=== PATIENT | female | born 1970 | race Caucasian/White ===

== ENCOUNTER 2020-04-10 08:29 | Outpatient (REF) | payer OTHER, SELFPAY | END 2020-04-10 08:30 | disposition home or self-care (01) | LOC: HO.LAB 08:29 | PROVIDERS: PCP Internal Medicine; Visit Provider Internal Medicine | DX: Z20.828 Contact with and (suspected) exposure to other viral communicable diseases (principal) | CPT/HCPCS: 87635 ==

== ENCOUNTER 2020-05-02 11:43 | Outpatient (REF) | payer OTHER, SELFPAY ==
[2020-05-02 12:02] LABS: COVID-19 Test Negative (Negative)
== END 2020-05-02 11:44 | disposition home or self-care (01) ==
LOC: HO.LAB 11:43
PROVIDERS: PCP Internal Medicine; Visit Provider Internal Medicine
DX: Z20.828 Contact with and (suspected) exposure to other viral communicable diseases (principal)
CPT/HCPCS: 87635

== ENCOUNTER 2020-06-09 06:03 | Outpatient (REF) | payer OTHER, SELFPAY ==
[2020-06-09 06:27] LABS: COVID-19 Test Negative (Negative)
== END 2020-06-09 06:04 | disposition home or self-care (01) ==
LOC: HO.EMPCOV 06:03
PROVIDERS: Visit Provider Internal Medicine
DX: Z20.828 Contact with and (suspected) exposure to other viral communicable diseases (principal)
CPT/HCPCS: 87635; C9803

== ENCOUNTER → 2020-06-24 14:44 | Outpatient (BNVA) | payer OTHER, SELFPAY | PROVIDERS: PCP Internal Medicine; Referring Provider Internal Medicine; Visit Provider Surgery | DX: Z76.89 Persons encountering health services in other specified circumstances (principal) ==

== ENCOUNTER → 2020-07-15 11:00 | Outpatient (BNVA) | payer OTHER, SELFPAY | PROVIDERS: PCP Internal Medicine; Visit Provider Advanced Practice Midwife | DX: Z76.89 Persons encountering health services in other specified circumstances (principal) ==

== ENCOUNTER 2020-07-21 10:43 | Day surgery (SDC) | payer OTHER, SELFPAY ==
[2020-07-15 09:59] VITALS: BMI 30.7
--- NOTE | 2020-07-18 08:36 | HO.ANESPROP2 ---
Documented by User: Alysia Foy 07/18/20 08:37 HPI - Anesthesia Eval Consult details Narrative: 49yo F for Colonoscopy [facility] Past Medical History Medical History Cervical polyp Lymphoma Surgical History Surgical History History of left breast biopsy History of lymph node excision S/P laparoscopic sleeve gastrectomy Social History Social History Are you a primary furnace caretaker to a significant other at home: No Do you presently have visiting nurse or other home services: No Alcohol intake: current Alcohol intake frequency: holidays/special occasions only Smoking Status: Never smoker Second Hand Smoke Exposure: No Use of substances other than those prescribed or required for medical reasons: No Have you been hit, kicked, punched, or otherwise hurt by someone within the past year? If so, by whom?: No Advance Directives: No Advance Directives Information Provided: No Advance Directives on File: No Recently lost weight without trying: No Meds Allergies Allergy/AdvReac Type Severity Reaction Status Date / Time No Known Allergies Allergy Verified 07/21/20 11:26 Home Medications Medication Instructions Recorded Confirmed Type No Known Home Meds 07/14/20 07/14/20 History Exam Exam Date and Time: July 18, 2020 0836 Height,Weight and Vital Signs: Height 5 ft 6 in Weight 86.183 kg Assessment and Plan Assessment Anesthesia Assessment: Chart Reviewed Documented by User: Natacha Bernard 07/21/20 11:44 [facility] Past Medical History Medical History Cervical polyp Lymphoma Family History Family history of problems with anesthesia: No Surgical History Surgical History History of left breast biopsy History of lymph node excision S/P laparoscopic sleeve gastrectomy History of Problems with Anesthesia: No Social History Social History Are you a primary furnace caretaker to a significant other at home: No Do you presently have visiting nurse or other home services: No Alcohol intake: current Alcohol intake frequency: holidays/special occasions only Smoking Status: Never smoker Second Hand Smoke Exposure: No Use of substances other than those prescribed or required for medical reasons: No Have you been hit, kicked, punched, or otherwise hurt by someone within the past year? If so, by whom?: No Advance Directives: No Advance Directives Information Provided: No Advance Directives on File: No Recently lost weight without trying: No Meds Allergies Allergy/AdvReac Type Severity Reaction Status Date / Time No Known Allergies Allergy Verified 07/21/20 11:26 Home Medications Medication Instructions Recorded Confirmed Type No Known Home Meds 07/14/20 07/14/20 History Exam Height,Weight and Vital Signs: Vital Signs Temp Pulse Resp BP Pulse Ox 07/21/20 11:28 97.7 F 85 18 110/55 L 98 Airway Mallampati Class: II TM Dist: >3cm Neck ROM: Full Loose/Missing/Broken Teeth: No Heart: RRR Lungs: CTAB Assessment and Plan Assessment Anesthesia Assessment: Anesthesia Plan Discussed and Chart Reviewed Final Anesthetic Review NPO: Yes ASA Class: II Final Preanesthetic Review: No Changes in Pt Med Stat, Meds/Allgs Chart Reviewed, Consent Obtained/Reviewed and Anes Risks/Benef Reviewed Patient Risk: Low Procedure Risk: Low Assessment/Block/Sedation in SS: Assess/Block/Sedation-SS Anesthetic Plan Anesthetic Plan: MAC: Disposition: Standard PACU
[2020-07-21 11:28] VITALS: BP 110/55; PULSE 85; RESP 18; TEMP 36.5; O2SAT 98
[2020-07-21] MEDS: Lactated Ringers 1,000 ML 100 ML IVCONT (11:40)
--- NOTE | 2020-07-21 11:47 | MHC.SHP ---
Pre-Procedural Eval Section A The patient is an INPATIENT: No Changes since office visit: Yes Patient answered all questions; No Cold of Flu in the past 2 weeks, No New Medical Problems and No Changes in Medication The History & Physical has been completed within 30 days and I have reviewed it.: Yes Section B Chief Complaint: screening Allergies: Allergies Allergy/AdvReac Type Severity Reaction Status Date / Time No Known Allergies Allergy Verified 07/21/20 11:26 Plan I have reviewed the history and physical and performed a pertinent physical examination on my patient. No changes have occurred unless specified.
[2020-07-21 12:39] VITALS: BP 98/46; PULSE 82; RESP 16; TEMP 36.4; O2SAT 97
--- NOTE | 2020-07-21 12:41 | W.PM.OPN ---
Operative Note Operative Note Date of Service: 07/21/20 Narrative: Preoperative diagnosis: Colorectal carcinoma screening Postoperative diagnosis: Colon polyps Procedure: Colonoscopy with biopsies Anesthesia: Monitored anesthesia care Specimens: Polyps of proximal right colon and 15 cm Estimated blood loss: Less than 1 cc Indications this is a 49-year-old female who has no GI complaints and presents for routine screening. Procedure in detail: Patient in left lateral decubitus position, time-out procedure was performed. Adequate sedation was induced. Rectal examination was done and was normal. The flexible pediatric colonoscope was introduced and was gradually advanced through the bowel to the level of the cecum. The prep was excellent. The cecal pouch, ileocecal valve and appendiceal orifice were visualized and appeared normal. The ileocecal valve was intubated and the distal ileum was inspected and appeared normal. The scope was drawn back into the cecum and was then slowly withdrawn visualizing all mucosal surfaces, was retroflexed within the rectum and was straightened and withdrawn. She tolerated the procedure well. Two small polyps were identified, 1 in the proximal right colon and 1 at 15 cm. Both were removed with a single bite of the biopsy forceps. There was no significant bleeding from either site. Based upon findings and pending pathology, next routine colonoscopy will be due in 5-10 years.
[2020-07-21 12:53] VITALS: BP 96/73; PULSE 89; RESP 16; TEMP 36.4; O2SAT 98
== END 2020-07-21 13:10 | disposition home or self-care (01) ==
PROVIDERS: PCP Internal Medicine; Visit Provider Surgery
PROC: 0DJD8ZZ Inspection of Lower Intestinal Tract, Via Natural or Artificial Opening Endoscopic (ICD-10-PCS; CPT 45378; principal; 2020-07-21 12:00)
DX: Z12.11 Encounter for screening for malignant neoplasm of colon (principal); K63.5 Polyp of colon; Z85.72 Personal history of non-Hodgkin lymphomas; Z98.84 Bariatric surgery status
CPT/HCPCS: 45380; 88305; J2250; J2405

== ENCOUNTER 2020-07-25 13:29 | Outpatient (REF) | payer OTHER, SELFPAY | END 2020-07-25 13:30 | disposition home or self-care (01) | LOC: HO.LAB 13:29 | PROVIDERS: PCP Internal Medicine; Visit Provider Advanced Practice Midwife | DX: N84.1 Polyp of cervix uteri (principal) | CPT/HCPCS: 57500; 58558; 88305 ==

== ENCOUNTER 2020-08-15 07:28 | Outpatient (REF) | payer OTHER, SELFPAY ==
--- NOTE | ~2020-08-15 | MM_ITS ---
EXAMINATION: MM SCREENING DIGITAL BREAST TOMOSYNTHESIS, BILATERAL CLINICAL INFORMATION: Screening. Asymptomatic. The lifetime risk of breast cancer based on the Tyrer-Cuzick Model is 13%. COMPARISON: Mammography: 01/21/2020, 05/09/1980 18, 10/08/2016 TECHNIQUE: Digital breast tomosynthesis is performed in both the craniocaudal and mediolateral oblique views along with computer-aided detection (CAD). Synthesized 2D images are generated from the tomosynthesis. FINDINGS: There are scattered areas of fibroglandular density (ACR BI-RADS breast composition Category b). There are no significant masses, abnormal calcifications, or other abnormalities. The axilla and skin contours are unremarkable. MM/MM tomosynthesis screening BI IMPRESSION: No mammographic evidence of malignancy. ASSESSMENT: BI-RADS 1: Negative RECOMMENDATION: Routine annual mammography screening. This patient's information was entered into a reminder system with a target due date for their next mammogram.
== END 2020-08-15 07:29 | disposition home or self-care (01) ==
LOC: HO.MAMMO 07:28
PROVIDERS: PCP Internal Medicine; Visit Provider Internal Medicine
DX: Z12.31 Encounter for screening mammogram for malignant neoplasm of breast (principal)
CPT/HCPCS: 77063; 77067

== ENCOUNTER 2020-10-13 08:21 | Outpatient (REF) | payer OTHER, SELFPAY ==
--- NOTE | ~2020-10-13 | XR_ITS ---
EXAMINATION: XR HAND, RIGHT CLINICAL INFORMATION: Pain in right hand. COMPARISON: None TECHNIQUE: PA, lateral, and oblique views of the right hand. FINDINGS: The bones and soft tissues are normal. No fracture. Alignment is anatomic. Joint spaces are maintained. No erosions or soft tissue calcifications. XR/XR hand RT min 3V IMPRESSION: Unremarkable right hand.
== END 2020-10-13 08:22 | disposition home or self-care (01) ==
LOC: HO.HOSX 08:21
PROVIDERS: Visit Provider Orthopaedic Surgery
DX: M79.641 Pain in right hand (principal)
CPT/HCPCS: 73130

== ENCOUNTER 2020-11-28 08:52 | Outpatient (REF) | payer OTHER, SELFPAY ==
[2020-11-28 11:34] LABS: MANUAL DIFF FLAG NO
[2020-11-28 11:48] LABS: Basophils Percent Auto 0.9 % (0-2); Eosinophils Percent Auto 1.2 % (0-4); Hematocrit 38.3 % (37-47); Hemoglobin 12.1 g/dl (12.0-16.0); Imm Gran Abs Auto 0.02 X10*3/uL (0.00-0.03); Imm Gran Pct Auto 0.6 % (0.0-0.4); Lymphocytes Absolute Auto 0.9 X10*3/uL (1.2-4.9); Lymphocytes Percent Auto 28.1 % (20-40); Mean Corpuscular HGB Conc 31.6 g/dl (31.0-35.0); Mean Corpuscular Hemoglobin 29.2 pg (27.0-33.0); Mean Corpuscular Volume 92.5 fL (80-98); Mean Platelet Volume 10.5 fL (9.4-12.3); Monocytes Absolute Auto 0.3 X10*3/uL (0.1-1.2); Monocytes Percent Auto 8.7 % (2-11); Neutrophils Percent Auto 60.5 % (45-73); Platelet Count 220 X10*3/uL (160-400); Red Blood Count 4.14 X10*6/uL (4.20-5.50); Red Cell Distribution Width 13.4 % (11.0-16.0); White Blood Count 3.4 X10*3/uL (4.8-10.8)
[2020-11-28 12:22] LABS: Rheumatoid Factor < 15.0 IU/mL (<15.0)
[2020-11-28 12:24] LABS: Alanine Aminotransferase 34 U/L (0-31); Albumin Level 4.2 g/dL (3.5-5.0); Alkaline Phosphatase 68 U/L (39-117); Anion Gap 12 (12-20); Aspartate Amino Transferase 27 U/L (5-31); Bilirubin Total 0.5 mg/dL (0.0-1.0); Blood Urea Nitrogen 16 mg/dL (9-16); Calcium 9.1 mg/dL (8.4-10.2); Carbon Dioxide 27 mmol/L (22-29); Chloride 105 mmol/L (96-108); Estimated Glomerular Filt Rate > 60; Glucose Random 88 mg/dL (60-115); Potassium 4.4 mmol/L (3.3-5.1); Sodium 140 mmol/L (135-145); Total Protein 6.7 g/dL (6.5-8.0)
[2020-11-29 13:02] LABS: Anti DNA DS Antibody <1 IU/mL
[2020-12-03 00:02] LABS: Tetanus Antitoxiod Antibody 0.32 IU/mL
[2020-12-03 13:41] LABS: Vitamin D 25-OH, D2 <4 ng/mL; Vitamin D 25-OH, D3 21 ng/mL; Vitamin D 25-OH, Total 21 ng/mL (30-100)
== END 2020-11-28 08:53 | disposition home or self-care (01) ==
LOC: HO.HMGCLDS 08:52
PROVIDERS: PCP Internal Medicine; Visit Provider Internal Medicine
DX: E66.09 Other obesity due to excess calories (principal); M19.049 Primary osteoarthritis, unspecified hand
CPT/HCPCS: 36415; 80053; 82306; 85025; 86225; 86431; 86774

== ENCOUNTER → 2021-03-25 08:39 | Outpatient (BNV) | payer OTHER, SELFPAY | PROVIDERS: PCP Internal Medicine; Visit Provider Internal Medicine | DX: C82.00 Follicular lymphoma grade I, unspecified site (principal) | CPT/HCPCS: 99212; 99213; 99214 ==

== ENCOUNTER 2021-06-01 05:48 | Outpatient (REF) | payer OTHER, SELFPAY ==
[2021-06-01 06:18] LABS: COVID-19 Test Negative (Negative); IDNOW Serial# 9DD0AD1C
== END 2021-06-01 05:49 | disposition home or self-care (01) ==
LOC: HO.LAB 05:48
PROVIDERS: Visit Provider Internal Medicine
DX: Z20.822 Contact with and (suspected) exposure to COVID-19 (principal)
CPT/HCPCS: 36415; 87635

== ENCOUNTER 2021-07-08 05:28 | Outpatient (REF) | payer OTHER, SELFPAY ==
[2021-07-08 06:00] LABS: COVID-19 Test Positive (Negative); IDNOW Serial# 9DD0AD1C
== END 2021-07-08 05:29 | disposition home or self-care (01) ==
LOC: HO.LAB 05:28
PROVIDERS: Visit Provider Internal Medicine
DX: Z20.822 Contact with and (suspected) exposure to COVID-19 (principal)
CPT/HCPCS: 87635

== ENCOUNTER 2021-07-18 08:54 | Outpatient (REF) | payer OTHER, SELFPAY ==
--- NOTE | ~2021-07-18 | XR_ITS ---
EXAMINATION: XR CHEST CLINICAL INFORMATION: Chronic cough COMPARISON: 02/21/2020 TECHNIQUE: 2 views of the chest were obtained. FINDINGS: No significant abnormality is noted involving the heart, lungs, mediastinum, bony thorax or soft tissues. Multiple surgical clips are seen in the left upper quadrant. XR/XR chest 2V IMPRESSION: Normal examination.
[2021-07-18 09:07] LABS: MANUAL DIFF FLAG NO
[2021-07-18 09:43] LABS: Basophils Percent Auto 0.4 % (0-2); Eosinophils Absolute Auto 0.1 X10*3/uL (0.0-0.4); Eosinophils Percent Auto 1.4 % (0-4); Hematocrit 40.3 % (37.0-47.0); Hemoglobin 13.1 g/dl (12.0-16.0); Imm Gran Abs Auto 0.02 X10*3/uL (0.00-0.03); Imm Gran Pct Auto 0.4 % (0.0-0.4); Lymphocytes Absolute Auto 1.8 X10*3/uL (1.2-4.9); Lymphocytes Percent Auto 35.4 % (20-40); Mean Corpuscular HGB Conc 32.5 g/dl (31.0-35.0); Mean Corpuscular Hemoglobin 28.9 pg (27.0-33.0); Mean Corpuscular Volume 88.8 fL (80.0-98.0); Mean Platelet Volume 9.9 fL (9.4-12.3); Monocytes Absolute Auto 0.5 X10*3/uL (0.1-1.2); Monocytes Percent Auto 8.9 % (2-11); Neutrophils Absolute Auto 2.7 x10*3/uL (2.0-8.3); Neutrophils Percent Auto 53.5 % (45-73); Platelet Count 266 X10*3/uL (160-400); Red Blood Count 4.54 X10*6/uL (4.20-5.50); Red Cell Distribution Width 12.4 % (11.0-16.0)
== END 2021-07-18 08:55 | disposition home or self-care (01) ==
LOC: HO.LAB 08:54
PROVIDERS: PCP Internal Medicine; Visit Provider Internal Medicine
DX: U09.9 Post COVID-19 condition, unspecified (principal); R05.3 Chronic cough
CPT/HCPCS: 36415; 71046; 85025

== ENCOUNTER 2021-09-18 07:18 | Outpatient (REF) | payer OTHER, SELFPAY ==
--- NOTE | ~2021-09-18 | MM_ITS ---
EXAMINATION: MM SCREENING DIGITAL BREAST TOMOSYNTHESIS, BILATERAL CLINICAL INFORMATION: Screening. Asymptomatic. The lifetime risk of breast cancer based on the Tyrer-Cuzick Model is 6.4%. COMPARISON: Mammography: August 15, 2020 and studies dating back to April 10, 2014 TECHNIQUE: Digital breast tomosynthesis is performed in both the craniocaudal and mediolateral oblique views along with computer-aided detection (CAD). Synthesized 2D images are generated from the tomosynthesis. FINDINGS: There are scattered areas of fibroglandular density (ACR BI-RADS breast composition Category b). There are no significant masses, abnormal calcifications, or other abnormalities. MM/MM tomosynthesis screening BI IMPRESSION: There are no significant changes from prior study. ASSESSMENT: BI-RADS 1: Negative RECOMMENDATION: Routine annual mammography screening. This patient's information was entered into a reminder system with a target due date for their next mammogram.
== END 2021-09-18 07:19 | disposition home or self-care (01) ==
LOC: HO.MAMMO 07:18
PROVIDERS: PCP Internal Medicine; Visit Provider Internal Medicine
DX: Z12.31 Encounter for screening mammogram for malignant neoplasm of breast (principal)
CPT/HCPCS: 77063; 77067

== ENCOUNTER 2022-05-12 10:43 | Emergency (ER) | payer OTHER, SELFPAY ==
[2022-05-12 10:55] VITALS: BP 125/61; PULSE 71; RESP 16; TEMP 36.5; O2SAT 98; BMI 30.7
--- NOTE | 2022-05-12 10:57 | ED.GENADULT ---
HPI - General Adult General Chief complaint: Skin/Abscess/Foreign Body <Alisson Corea MD - Last Filed: 05/12/22 11:07> Stated complaint: Abscess Back of Neck <Alisson Corea MD - Last Filed: 05/12/22 11:07> Time Seen by Provider: 05/12/22 10:57 <Alisson Corea MD - Last Filed: 05/12/22 11:07> History of Present Illness HPI narrative: Patient complains of painful red lump on the left side of her neck which has been groin for days, she did see her doctor who started antibiotics but the lump keeps growing, no fever no difficulty breathing or swallowing <LATONYA Alford - Last Filed: 05/12/22 18:09> Related Data Home medications: Home Medications Medication Instructions Recorded Confirmed calcium 500 mg tablet 500 mg PO DAILY 03/25/21 03/25/21 multivitamin 1 tab PO DAILY 03/25/21 03/25/21 Previous Rx's Medication Instructions Recorded benzonatate 200 mg capsule 200 mg PO BID-TID PRN cough #30 07/14/21 caps ibuprofen 600 mg tablet 600 mg PO Q6H PRN pain #20 tabs 05/12/22 oxycodone 5 mg tablet 5 mg PO Q6H PRN pain #10 tabs 05/12/22 <Alisson Corea MD - Last Filed: 05/12/22 11:07> Allergies/adverse reactions: Allergies Allergy/AdvReac Type Severity Reaction Status Date / Time No Known Allergies Allergy Verified 03/25/21 08:54 <Alisson Corea MD - Last Filed: 05/12/22 11:07> Review of Systems Review of Systems: Positive for painful lump on the neck Negatives are no fever no chills no headache, no stiff neck no difficulty breathing or swallowing or speaking, no other sores on the body no other rashes <LATONYA Alford - Last Filed: 05/12/22 18:09> Yes all other systems are reviewed and are negative <LATONYA Alofrd - Last Filed: 05/12/22 18:09> PMFSH Past Medical History Source: nursing notes reviewed <LATONYA Alford - Last Filed: 05/12/22 18:09> Medical History: Medical History (Updated 05/12/22 @ 11:59 by LATONYA Alford) Cervical polyp Lymphoma Post-COVID chronic cough <Alisson Corea MD - Last Filed: 05/12/22 11:07> Surgical History: Surgical History (Updated 03/25/21 @ 08:58 by Dede Galarza MD) History of left breast biopsy History of lymph node excision S/P laparoscopic sleeve gastrectomy <Alisson Corea MD - Last Filed: 05/12/22 11:07> Social History Social History: Social History (Updated 03/25/21 @ 08:54 by Jordana Munoz) Are you a primary home health care worker to a significant other at home: No Do you presently have visiting nurse or other home services: No Alcohol intake: current Alcohol intake frequency: holidays/special occasions only Patient Tobacco Use Status: Never used Tobacco Second Hand Smoke Exposure: No Advance Directives: Yes Advance Directives on File: Yes Advance Directives Date on File: 02/11/22 Current occupational status: employed Current occupation: right handed/ nurse <Alisson Corea MD - Last Filed: 05/12/22 11:07> Physical Exam ED Vital Signs: Vital Signs - 24 hr 05/12/22 10:55 Temperature 97.7 F Pulse Rate 71 Respiratory Rate 16 Blood Pressure 125/61 Pulse Oximetry 98 Oxygen Delivery Method Room Air BMI result Body Mass Index 30.7 <Alisson Corea MD - Last Filed: 05/12/22 11:07> Vital Signs - 24 hr 05/12/22 10:55 Temperature 97.7 F Pulse Rate 71 Respiratory Rate 16 Blood Pressure 125/61 Pulse Oximetry 98 Oxygen Delivery Method Room Air BMI result Body Mass Index 30.7 <LATONYA Alford - Last Filed: 05/12/22 18:09> General appearance no acute distress Head is normocephalic atraumatic Neck is supple On left side of the neck there is 2 cm x 3 cm area of fluctuance induration redness warmth and tenderness, no surrounding erythema No respiratory distress Extremities full range of motion x4 Neuro gait and balance are normal motor is 5/5 x4, sensation intact and symmetrical Skin no other wounds or rashes <LATONYA Alford - Last Filed: 05/12/22 18:09> Course Course Course Narrative: triage note : pt comes to the ED c/o an abcess on the left side of the neck. present for 1.5 weeks, has tried keflex and bactrim. I&D was attemped, pus expressed. neck becoming more tender, erythmea spreading, c/o chills and fever. neck erythematous, , superficial ulceration present scant amount of pus present superficially lidocaine ordered, ready for I&D. failed outpt tx, likely needs abx change <Alisson Corea MD - Last Filed: 05/12/22 11:07> triage note : pt comes to the ED c/o an abcess on the left side of the neck. present for 1.5 weeks, has tried keflex and bactrim. I&D was attemped, pus expressed. neck becoming more tender, erythmea spreading, c/o chills and fever. neck erythematous, , superficial ulceration present scant amount of pus present superficially lidocaine ordered, ready for I&D. Procedure note the abscess was cleansed with Betadine anesthesia was 10 cc of 1% lidocaine, 1.5 cm incision was made, loculations were broken up with forceps and area was cleaned out and drained of significant pus, packing was placed and dressing applied <LATONYA Alford - Last Filed: 05/12/22 18:09> Medications Administered Discontinued Medications Generic Name Dose Route Start Last Admin Trade Name Freq PRN Reason Stop Dose Admin Lidocaine HCl 4 ml 05/12/22 11:01 05/12/22 11:30 Lidocaine Hcl 2% 2 Ml Vial INFILTRATI 05/12/22 11:02 4 ml ONCE ONE Administration <Alisson Corea MD - Last Filed: 05/12/22 11:07> Medications Administered Discontinued Medications Generic Name Dose Route Start Last Admin Trade Name Freq PRN Reason Stop Dose Admin Lidocaine HCl 4 ml 05/12/22 11:01 05/12/22 11:30 Lidocaine Hcl 2% 2 Ml Vial INFILTRATI 05/12/22 11:02 4 ml ONCE ONE Administration <LATONYA Alford - Last Filed: 05/12/22 18:09> Discharge Plan Discharge Clinical Impression: Abscess <Alisson Corea MD - Last Filed: 05/12/22 11:07> Patient Disposition: Home, Self-Care <Alisson Corea MD - Last Filed: 05/12/22 11:07> Additional Instructions: Abscess was drained with significant pus Packing was placed, you can remove the packing in 24 hours if it is improving If it is not improving return to the ER in 2 days for wound check If it is worse in any way, worse pain and swelling, spreading redness, fever, any sign of worsening infection return to the ER immediately <Alisson Corea MD - Last Filed: 05/12/22 11:07> Prescriptions: New oxycodone 5 mg tablet 5 mg PO Q6H PRN (Reason: pain) Qty: 10 0RF Rx Instructions: Partial Fill upon patient request. ibuprofen 600 mg tablet 600 mg PO Q6H PRN (Reason: pain) Qty: 20 0RF No Action benzonatate 200 mg capsule 200 mg PO BID-TID PRN (Reason: cough) Qty: 30 0RF multivitamin Tablet 1 tab PO DAILY calcium 500 mg Tablet 500 mg PO DAILY <Alisson Corea MD - Last Filed: 05/12/22 11:07> Stand Alone Forms: Work/School Release <Alisson Corea MD - Last Filed: 05/12/22 11:07> Interventions: ED Discharge Assessment Last Done: 05/12/22 12:10 <Alisson Corea MD - Last Filed: 05/12/22 11:07> Discharge Date/Time: 05/12/22 12:13 <Alisson Corea MD - Last Filed: 05/12/22 11:07>
== END 2022-05-12 12:13 | disposition home or self-care (01) ==
PROVIDERS: Emergency Provider Emergency Medicine; PCP Internal Medicine
DX: L02.212 Cutaneous abscess of back [any part, except buttock and flank] (principal); Z79.899 Other long term (current) drug therapy
CPT/HCPCS: 10060; 99283; 99284

== ENCOUNTER 2022-05-15 12:15 | Emergency (ER) | payer OTHER, SELFPAY ==
--- NOTE | ~2022-05-15 | CT_ITS ---
EXAMINATION: CT SOFT TISSUE NECK WITH CONTRAST CLINICAL INFORMATION: Access behind left ear with mastoid tip and swelling. COMPARISON: There are no prior studies available for comparison. TECHNIQUE: Following the intravenous administration of 60 mL of Omnipaque 350 intravenous contrast, helical imaging was performed in the axial plane with generation of coronal and sagittal reformatted images. This CT examination was performed using dose optimization techniques as appropriate, variously including the following: *Automated exposure control *Adjustment of mA and/or kV according to patient size (this includes techniques or standardized protocols for targeted exams where dose is matched to indication/reason for exam; i.e. extremities or head) *Use of iterative reconstruction technique DLP: 571 mGy-cm FINDINGS: There is a small defect in the skin in the high left cervical region posterolaterally. This defect is surrounded by hyperdense adjacent subcutaneous fat. No discrete fluid collections are demonstrated. There are no radiodense foreign bodies. There is no cervical lymphadenopathy. There are small lymph nodes at multiple levels in the neck bilaterally. The parotid glands are homogeneous in attenuation; there is moderate accessory parotid tissue over the masseter muscles. The submandibular glands are normal. No contour abnormality or pathologic enhancement is seen within the oral cavity or pharyngeal mucosal space. The laryngeal structures are normal. The parapharyngeal fat is preserved. The carotid sheath vasculature opacifies normally. No extra mucosal soft tissue mass or fluid collection is seen. No retropharyngeal fluid collection is seen. The thyroid gland is normal. There are multiple AP window and precarinal lymph nodes which are nonenlarged. There is a common origin of the left common carotid and brachiocephalic arteries off the aortic arch, which is a normal variant. There are emphysematous changes in the upper lung [place] bilaterally. The mastoid air cells and visualized portions of the paranasal sinuses are well-aerated. The temporomandibular joints are normal. No periapical disease is identified. There are no acute osseous findings. The imaged portions of the brain parenchyma are unremarkable. CT/CT soft tissue neck w IV con IMPRESSION: 1. There is a defect in the skin in the high left cervical region posterolaterally. There is surrounding increased fat attenuation, most consistent with inflammatory changes. There are no discrete fluid collections or foreign bodies. 2. There is no cervical lymphadenopathy, but there are small lymph nodes in multiple levels in the neck and superior mediastinum.
[2022-05-15 12:22] VITALS: BP 147/94; PULSE 82; RESP 18; O2SAT 98; BMI 30.7
[2022-05-15 13:17] LABS: MANUAL DIFF FLAG NO
[2022-05-15 13:19] LABS: Basophils Percent Auto 0.6 % (0-2); Eosinophils Absolute Auto 0.1 X10*3/uL (0.0-0.4); Eosinophils Percent Auto 1.4 % (0-4); Hematocrit 40.2 % (37.0-47.0); Hemoglobin 12.9 g/dl (12.0-16.0); Imm Gran Abs Auto 0.02 X10*3/uL (0.00-0.03); Imm Gran Pct Auto 0.4 % (0.0-0.4); Lymphocytes Absolute Auto 1.3 X10*3/uL (1.2-4.9); Mean Corpuscular HGB Conc 32.1 g/dl (31.0-35.0); Mean Corpuscular Hemoglobin 28.5 pg (27.0-33.0); Mean Corpuscular Volume 88.7 fL (80.0-98.0); Mean Platelet Volume 9.9 fL (9.4-12.3); Monocytes Absolute Auto 0.4 X10*3/uL (0.1-1.2); Monocytes Percent Auto 7.4 % (2-11); Neutrophils Absolute Auto 3.3 x10*3/uL (2.0-8.3); Neutrophils Percent Auto 65.2 % (45-73); Platelet Count 253 X10*3/uL (160-400); Red Blood Count 4.53 X10*6/uL (4.20-5.50); Red Cell Distribution Width 12.6 % (11.0-16.0)
[2022-05-15 13:30] LABS: Lactic Acid 0.6 mmol/L (0.5-2.0)
[2022-05-15 13:32] LABS: Anion Gap 16 (12-20); Blood Urea Nitrogen 19 mg/dL (9-16); C Reactive Protein 0.18 mg/dL (< or = 0.50); Calcium 9.3 mg/dL (8.4-10.2); Carbon Dioxide 22 mmol/L (22-29); Chloride 104 mmol/L (96-108); Creatinine Clr Calc Pharmacy 64.8; Estimated Glomerular Filt Rate 51; Glucose Random 84 mg/dL (60-115); Potassium 4.7 mmol/L (3.3-5.1); Sodium 137 mmol/L (135-145)
[2022-05-15 13:58] LABS: Erythrocyte Sedimentation Rate 16 MM/HR (0-20)
--- NOTE | 2022-05-15 14:01 | ED.SKABFB ---
HPI - Skin/Abscess/Foreign Bdy General Chief complaint: Skin/Abscess/Foreign Body Stated complaint: Abscess Time Seen by Provider: 05/15/22 12:28 Source: patient Mode of arrival: ambulatory History of Present Illness HPI narrative: 51-year-old female with a past medical history of abscess to left neck s/p I&D on 05/12 and completion of Bactrim/Keflex this morning presenting to the ED complaining of continued pain to area with erythema. Reports chills and pain radiating up to head and down neck. Denies associated drainage from area. Denies fever, ear pain, sore throat, difficulty swallowing, SOB, headache MD complaint: abscess/boil Related Data Home Medications Medication Instructions Recorded Confirmed calcium 500 mg tablet 500 mg PO DAILY 03/25/21 03/25/21 multivitamin 1 tab PO DAILY 03/25/21 03/25/21 Previous Rx's Medication Instructions Recorded benzonatate 200 mg capsule 200 mg PO BID-TID PRN cough #30 07/14/21 caps ibuprofen 600 mg tablet 600 mg PO Q6H PRN pain #20 tabs 05/12/22 oxycodone 5 mg tablet 5 mg PO Q6H PRN pain #10 tabs 05/12/22 clindamycin HCl 150 mg capsule 450 mg PO TID 7 days #63 caps 05/15/22 ketorolac 10 mg tablet 10 mg PO TID PRN pain 5 days #15 05/15/22 tabs Allergies Allergy/AdvReac Type Severity Reaction Status Date / Time No Known Allergies Allergy Verified 03/25/21 08:54 Review of Systems Review of Systems: Constitutional: No Weight loss, No Fever, + Chills ENT/Mouth: No Ear Pain, No Nasal Congestion, No Hoarseness, No sore throat, No Rhinorrhea, No Swallowing Difficulty Cardiovascular: No Chest Pain, No SOB Respiratory: No Cough, No Sputum, No Wheezing Gastrointestinal: No Nausea, No Vomiting, No Diarrhea, No Constipation, No Abdominal pain Genitourinary: No Dysuria, No Urinary Frequency, No Hematuria, No Flank Pain Musculoskeletal: No joint pain, No Myalgias, No Joint Swelling Skin: + Skin Lesions, No rash Neuro: No Weakness, No Numbness, No Paresthesias Yes all other systems are reviewed and are negative Constitutional: Constitutional: Reports as per HPI PMFSH Past Medical History Attestation statement: The following information was validated with the patient. Medical History Cervical polyp Lymphoma Post-COVID chronic cough Surgical History History of left breast biopsy History of lymph node excision S/P laparoscopic sleeve gastrectomy Social History Social History Are you a primary post acute care nurse practitioner to a significant other at home: No Do you presently have visiting nurse or other home services: No Alcohol intake: current Alcohol intake frequency: holidays/special occasions only Patient Tobacco Use Status: Never used Tobacco Second Hand Smoke Exposure: No Advance Directives: Yes Advance Directives on File: Yes Advance Directives Date on File: 02/11/22 Current occupational status: employed Current occupation: right handed/ nurse Physical Exam Vital Signs: Vital Signs: Last Vital Signs Pulse 82 05/15/22 12:22 Resp 18 05/15/22 12:22 BP 147/94 H 05/15/22 12:22 Pulse Ox 98 05/15/22 12:22 O2 Del Method 05/15/22 12:22 BMI result Body Mass Index 30.7 Const: General: cooperative, healthy appearing and no acute distress Orientation/consciousness: patient oriented x3 Limitations: no limitations HEENT: Other: + open abscess noted behind left ear/upper neck with surrounding erythema. Minimal pus expressed. Mild associated swelling to mastoid and upper neck with ttp. No stridor, neck supple, talking in complete sentences Head: Yes normal to inspection and Yes atraumatic Ears: hearing grossly normal bilaterally, external ears normal and TM's normal bilaterally General nose exam: Normal external nose present Face and sinus: Yes normal facial exam Mouth: Normal oral and palatal mucosa present Throat: Yes posterior oropharynx normal, Yes tonsils normal, Yes uvula midline, No peritonsillar mass, No uvula laterally displaced and No uvular edema Eyes: General: appearance normal, both eyes and all related structures EOM: EOMs intact bilaterally Neck: Neck: Yes normal visual inspection and Yes no meningeal signs Resp: Effort & Inspection: normal respiratory effort, not labored, no nasal flaring, no respiratory distress and no stridor Auscultation: clear to auscultation bilaterally, no crackles, no rales, no rhonchi and no wheezes Cardio: Rate: regular rate Heart sounds: S1 normal heart sound present and S2 normal heart sound present Skin: Rashes: no rashes Neuro: General: patient oriented x3, tone normal and no meningeal signs Gait exam (Neuro): Normal gait present Extrem: General: Yes normal to inspection Course Course Course Narrative: -no leukocytosis. Labs otherwise unremarkable. ESR/CRP WNL 1540--CT soft tissue neck w IV con IMPRESSION: 1. There is a defect in the skin in the high left cervical region posterolaterally. There is surrounding increased fat attenuation, most consistent with inflammatory changes. There are no discrete fluid collections or foreign bodies. ? 2. There is no cervical lymphadenopathy, but there are small lymph nodes in multiple levels in the neck and superior mediastinum. > Results discussed with patient, will initiate patient on clindamycin with very close follow-up. Discussed worrisome signs and symptoms and strict return precautions, and when to return to the emergency department. They verbalized understanding and feel safe for discharge at this time. Medications Administered Discontinued Medications Generic Name Dose Route Start Last Admin Trade Name Freq PRN Reason Stop Dose Admin Clindamycin Phosphate 600 mg in 50 mls @ 100 mls/hr 05/15/22 13:05 05/15/22 14:23 Cleocin IV 05/15/22 13:34 100 mls/hr ONCE ONE Administration Iohexol 100 ml 05/15/22 14:29 05/15/22 14:29 Iohexol 350 Mg/Ml 100 Ml Infus..Btl IV 05/15/22 14:30 60 ml ONCE ONE Administration MDM - Skin/Abscess/Foreign Bdy MDM Narrative Medical decision making narrative: 51-year-old female with a past medical history of abscess to left neck s/p I&D on 05/12 and completion of Bactrim/Keflex this morning presenting to the ED complaining of continued pain to area with erythema. On exam VSS, NAD, physical exam as above with open abscess and surrounding swelling with tenderness to the mastoid. No intraoral involvement, talking in complete sentences, lungs CTA. Concern for persistent infection vs progressive infection/cellulitis vs mastoiditis. Rule out deeper infection Plan: Labs, CT, empiric IV antibiotics Differential Diagnosis Differential diagnosis: Likely abscess of skin or subcutaneous tissue and cellulitis Medical Records Attestation: I reviewed the patient's medical records. Lab Data Attestation: I reviewed the patient's lab results. Result diagrams: 05/15/22 13:03 05/15/22 13:04 Labs: Lab Results 05/15/22 05/15/22 05/15/22 Range/Units 13:03 13:03 13:04 WBC 5.0 (4.8-10.8) X10*3/uL RBC 4.53 (4.20-5.50) X10*6/uL Hgb 12.9 (12.0-16.0) g/dl Hct 40.2 (37.0-47.0) % MCV 88.7 (80.0-98.0) fL MCH 28.5 (27.0-33.0) pg MCHC 32.1 (31.0-35.0) g/dl RDW 12.6 (11.0-16.0) % Plt Count 253 (160-400) X10*3/uL MPV 9.9 (9.4-12.3) fL Immature Gran % (Auto) 0.4 (0.0-0.4) % Neut % (Auto) 65.2 (45-73) % Lymph % (Auto) 25.0 (20-40) % [place] % (Auto) 7.4 (2-11) % Eos % (Auto) 1.4 (0-4) % Baso % (Auto) 0.6 (0-2) % Lymph # (Auto) 1.3 (1.2-4.9) X10*3/uL [place] # (Auto) 0.4 (0.1-1.2) X10*3/uL Eos # (Auto) 0.1 (0.0-0.4) X10*3/uL Baso # (Auto) 0.0 (0.0-0.2) X10*3/uL Abs Immat Gran (auto) 0.02 (0.00-0.03) X10*3/uL Absolute Neuts (auto) 3.3 (2.0-8.3) x10*3/uL Absolute Nucleated RBC 0.000 (0.0-0.012) X10*3/uL Nucleated RBC % (auto) 0.0 (0.0-0.2) /100WBC ESR 16 (0-20) MM/HR Sodium (135-145) mmol/L Potassium (3.3-5.1) mmol/L Chloride (96-108) mmol/L Carbon Dioxide (22-29) mmol/L Anion Gap (12-20) BUN (9-16) mg/dL Creatinine (0.5-1.4) mg/dL Estim Creat Clear Calc Estimated GFR Random Glucose (60-115) mg/dL Lactic Acid 0.6 (0.5-2.0) mmol/L Calcium (8.4-10.2) mg/dL C-Reactive Protein (< or = 0.50) mg/dL 05/15/22 Range/Units 13:04 WBC (4.8-10.8) X10*3/uL RBC (4.20-5.50) X10*6/uL Hgb (12.0-16.0) g/dl Hct (37.0-47.0) % MCV (80.0-98.0) fL MCH (27.0-33.0) pg MCHC (31.0-35.0) g/dl RDW (11.0-16.0) % Plt Count (160-400) X10*3/uL MPV (9.4-12.3) fL Immature Gran % (Auto) (0.0-0.4) % Neut % (Auto) (45-73) % Lymph % (Auto) (20-40) % [place] % (Auto) (2-11) % Eos % (Auto) (0-4) % Baso % (Auto) (0-2) % Lymph # (Auto) (1.2-4.9) X10*3/uL [place] # (Auto) (0.1-1.2) X10*3/uL Eos # (Auto) (0.0-0.4) X10*3/uL Baso # (Auto) (0.0-0.2) X10*3/uL Abs Immat Gran (auto) (0.00-0.03) X10*3/uL Absolute Neuts (auto) (2.0-8.3) x10*3/uL Absolute Nucleated RBC (0.0-0.012) X10*3/uL Nucleated RBC % (auto) (0.0-0.2) /100WBC ESR (0-20) MM/HR Sodium 137 (135-145) mmol/L Potassium 4.7 (3.3-5.1) mmol/L Chloride 104 (96-108) mmol/L Carbon Dioxide 22 (22-29) mmol/L Anion Gap 16 (12-20) BUN 19 H (9-16) mg/dL Creatinine 1.11 (0.5-1.4) mg/dL Estim Creat Clear Calc 64.8 Estimated GFR 51 Random Glucose 84 (60-115) mg/dL Lactic Acid (0.5-2.0) mmol/L Calcium 9.3 (8.4-10.2) mg/dL C-Reactive Protein 0.18 (< or = 0.50) mg/dL Discharge Plan Discharge Clinical Impression: Abscess Patient Disposition: Home, Self-Care Instructions: Abscess (ED), Abscess Follow-up (ED) Additional Instructions: Your blood work was reassuring. Your CT scan does show the abscess that we appreciate however no deeper infection The do see small lymph nodes in multiple levels of her neck and superior mediastinum. Please have close follow-up with her oncologist in regards to this Apply warm compresses. Toradol as an anti-inflammatory/pain medication, take with food If symptoms persist/worsen, areas not improving, develops drainage, you have fever, increasing redness return to the emergency department You should be re-evaluated in 2 days Prescriptions: New clindamycin HCl 150 mg capsule 450 mg PO TID 7 Days Qty: 63 0RF ketorolac 10 mg tablet 10 mg PO TID PRN (Reason: pain) 5 Days Qty: 15 0RF No Action benzonatate 200 mg capsule 200 mg PO BID-TID PRN (Reason: cough) Qty: 30 0RF multivitamin Tablet 1 tab PO DAILY calcium 500 mg Tablet 500 mg PO DAILY oxycodone 5 mg tablet 5 mg PO Q6H PRN (Reason: pain) Qty: 10 0RF Rx Instructions: Partial Fill upon patient request. ibuprofen 600 mg tablet 600 mg PO Q6H PRN (Reason: pain) Qty: 20 0RF Referrals: Sivan Sr MD [Primary Care Provider] - 2 days (For re-evaluated)
[2022-05-15] MEDS: Clindamycin Phosphate/D5W 600 MG/50 ML PIGGYBACK 100 MG IV (14:23)
[2022-05-15] MEDS: iohexoL 350 MG/ML 100 ML INFUS..BTL IV (14:29)
[2022-05-15] MEDS: Ketorolac Tromethamine 15 MG/ML VIAL IVPUSH (16:03)
--- NOTE | 2022-06-21 11:31 | MHC.HEMONCMA ---
orders enter in [facility] for u/s thyroid, soft tissue neck,/head. LM on VM for patient given her appt for 06/21/22 at 1:30pm and to call me back to confirm.
== END 2022-05-15 16:10 | disposition home or self-care (01) ==
PROVIDERS: Physician Assistant; Emergency Provider Emergency Medicine; PCP Internal Medicine
DX: L02.11 Cutaneous abscess of neck (principal); M54.2 Cervicalgia
CPT/HCPCS: 36415; 70491; 80048; 83605; 85025; 85652; 86140; 87040; 96374; 96375; 99283; 99284; J1885; Q9967

== ENCOUNTER 2022-06-15 09:02 | Outpatient (REF) | payer OTHER, SELFPAY ==
--- NOTE | ~2022-06-15 | PE_ITS ---
EXAMINATION: Fluorine-18 FDG PET/CT Scan CLINICAL INDICATION: Subsequent treatment management. 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 PROCEDURE: 67 minutes following the intravenous administration of 21.2 mCi of fluorine 18 FDG, images from the base of the skull to the mid thighs were obtained using a combined PET/CT scanner with CT scan based attenuation correction. No oral contrast was administered. No intravenous contrast was administered. Transverse, coronal, sagittal, and volume reconstruction projections were obtained. The patient's blood glucose as determined by a finger stick, was 99 mg/dl immediately prior to injection. Total CT exam dose-length product 875.09 mGy-cm * These CT images were obtained using dose optimization techniques as appropriate, variously including the following: Automated exposure control * Adjustment of mA and/or kV according to patient size (this includes techniques or standardized protocols for targeted exams where dose is matched to indication/reason for exam; i.e. extremities or head) * Use of iterative reconstruction technique COMPARISON: Prior PET/CT scans dated 01/18/2019, 09/14/2018 and 06/01/2018 are available for comparison. CT scan of the neck soft tissues dated 05/15/2022 is also available for comparison. FINDINGS: (Slice numbers described in this report are numbered superiorly to inferiorly with slice #1 in the head) NECK AND VISUALIZED HEAD: New bilateral FDG avid cervical lymph nodes are present. The most prominent of these is a left cervical level IIb lymph node showing SUVmax 4.0, slice 31/267 and measuring 1.1 x 0.9 cm in largest transverse dimensions. Immediately adjacent smaller and less FDG avid left cervical level IIb lymph nodes are also present. On the right side a single FDG avid cervical level IIa lymph node is present showing SUVmax 3.0, slice 37/267 and measuring 0.6 x 0.5 cm in largest transverse dimensions. Neither of these were present on the prior study dated 01/18/2019. Also new since the prior study is mild diffuse FDG activity in the thyroid gland, and this appears to be most intense in a hypodense nodule in the mid right lobe. This shows SUVmax 5.9, slice 47/267. A subcentimeter hypodense nodule is also probably present in the left lobe, but these are difficult to delineate on these nondiagnostic CT images performed without intravenous contrast. However neither the FDG avidity nor the suspicious hypodensities are present on the prior 01/18/2019 study although very faint activity in the right thyroid lobe in this region or diffusely may have been present but this was much less intensely FDG avid. Equivocal hypodensities on the recent 05/15/2022 CT scan of the neck soft tissues are suggested in both thyroid lobes, but the thyroid visualization is suboptimal due to beam hardening artifact from contrast in the adjacent jugular veins. There is prominent and bilaterally symmetrical FDG activity in the palatine tonsil regions bilaterally with no associated CT abnormalities on either these nondiagnostic CT images or the CT scan of the neck soft tissues dated 05/15/2022. The mediastinal blood pool shows SUVmax 2.5, measured in the pulmonary artery, slice 78/267. There is weak FDG activity in the posterolateral subcutaneous tissues of the high cervical region, the level of the dens, showing SUVmax 1.7, slice 20/267. There is a soft tissue density extending from the skin to the superficial musculature in this region, and this is at the site of a skin defect visualized on the 05/15/2022 CT scan, and the defect is no longer present. No additional foci of abnormal FDG activity are present in the neck or visualized head. All the other activity appears physiological. THORAX: There are no foci of abnormal FDG activity in the chest. No suspicious pulmonary nodules are visualized. There is no pleural or pericardial or pneumothorax. There is no mediastinal, supraclavicular, or axillary lymphadenopathy. A right-sided chest port and associated catheter visualized on the 01/18/2019 study is no longer in place. ABDOMEN AND PELVIS: There is an FDG avid left external iliac lymph node present, SUVmax 4.5, slice 207/267 and measuring 1.1 x 0.5 cm in largest transverse dimensions. This was not present on the prior 01/18/2019 study, but an FDG avid lymph node at this site was present on the baseline 06/01/2018 study. Inferior to this a left inguinal lymph node also shows SUVmax 4.5, slice 215/267, measuring 1.5 x 1.1 cm in largest transverse dimensions. This was not present on the most recent 01/18/2019 study, but several FDG avid inguinal lymph nodes are present including in this region on the baseline 06/01/2018 study. No additional retroperitoneal, mesenteric, pelvic or inguinal lymphadenopathy is present. There is some heterogeneity in the FDG distribution in the liver but no definite abnormal foci of increased activity are present. The SUVmax in the liver is 4.5, slice 125/267. The gallbladder and spleen are unremarkable. The kidneys, adrenal glands and pancreas are unremarkable. There is mild FDG activity present throughout the gastrointestinal tract without a suspicious focal component. There is diverticulosis without evidence of diverticulitis. Multiple metallic sutures from prior gastric surgery are noted with no associated abnormal FDG activity and unchanged in appearance from prior studies. The hollow viscera are otherwise unremarkable. There is no additional retroperitoneal, mesenteric, pelvic or inguinal lymphadenopathy. The pelvic organs are unremarkable. MUSCULOSKELETAL: There are no foci of abnormal FDG activity in the osseous structures. There is some very mild degenerative changes in the spine but no suspicious sclerotic or lytic lesions are visualized. VASCULAR: No significant abnormalities are present. PET/PET CT fusion skull to thigh IMPRESSION: 1. FDG avid cervical and left external iliac and inguinal lymph nodes are present, and these were not present on the prior 01/18/2019 study. The findings are strongly suspicious for recurrent lymphoma. Using the 5 point Deauville scale, this patient would be classified as a Deauville score of 5. 2. An FDG avid right thyroid nodule is probably present, possibly corresponding to a hypodense nodule on the CT images, but this is not well delineated on the current CT images or the diagnostic 05/15/2022 CT scan of the neck soft tissues. This FDG avidity is suspicious for malignancy. A second hypodense mildly FDG avid small nodule in the left lobe is also suggested. Correlation with ultrasound including consideration of ultrasound-guided fine-needle aspirate is suggested, if clinically indicated. 3. No additional abnormalities suspicious for other metastatic or malignant lesions are noted.
== END 2022-06-15 09:03 | disposition home or self-care (01) ==
LOC: HO.PET 09:02
PROVIDERS: Visit Provider Internal Medicine
DX: Z13.89 Encounter for screening for other disorder (principal)

== ENCOUNTER 2022-06-21 13:11 | Outpatient (REF) | payer OTHER, SELFPAY ==
--- NOTE | ~2022-06-21 | US_ITS ---
EXAMINATION: US SOFT TISSUE HEAD/NECK CLINICAL INFORMATION: Abnormal PET/lymphoma? COMPARISON: PET/CT fusion skull to thigh 06/15/2022. CT soft tissue neck with contrast 05/15/2022. TECHNIQUE: Linear transducer grayscale and color Doppler examination of the thyroid bed and surrounding soft tissue. FINDINGS: There are multiple normal-appearing lymph nodes seen throughout the cervical tissues. There is a left level 3 lymph node which appears somewhat rounded with thickened cortex. This node measures 2 x 0.7 x 1.5 cm. The cortex measures 0.4 cm. Remaining lymph nodes throughout the neck have normal morphology. US/US soft tiss head and/or neck IMPRESSION: There is a left level 3 lymph node which appears somewhat rounded with thickened cortex. This node is also enlarged. This is nonspecific. At this location this could correspond to the finding on prior PET/CT. Remaining lymph nodes throughout the neck appear normal.
== END 2022-06-21 13:12 | disposition home or self-care (01) ==
LOC: HO.US 13:11
PROVIDERS: Visit Provider Internal Medicine
DX: E04.1 Nontoxic single thyroid nodule (principal); R59.1 Generalized enlarged lymph nodes
CPT/HCPCS: 76536

== ENCOUNTER 2022-06-29 14:44 | Outpatient (REF) | payer OTHER, SELFPAY ==
--- NOTE | ~2022-06-29 | US_ITS ---
EXAMINATION: US THYROID CLINICAL INFORMATION: Abnormal PET/CT. Evaluate for thyroid nodule. COMPARISON: PET/CT 06/15/2022. CT soft tissue neck 05/15/2022. TECHNIQUE: Linear transducer grayscale and color Doppler examination with attention to the region of the thyroid. FINDINGS: SIZE: Measurements of the thyroid lobes and nodules are given in sagittal, anteroposterior and transverse dimensions respectively. Right Thyroid Lobe: 5.0 x 1.7 x 2.0 cm, volume 7.8 mL. Parenchyma: The gland echotexture is heterogeneous. Thyroid vascularity is normal. Left Thyroid Lobe: 4.0 x 1.0 x 1.7 cm, volume 3.3 mL. Parenchyma: The gland echotexture is heterogeneous. Thyroid vascularity is normal. Isthmus: 0.3 cm in maximum AP dimension. Estimated total number of nodules greater than or equal to 1 cm: 0. [employer] nodules are described as follows: 1. Location: Right mid/lower pole. Size: 0.7 x 0.6 x 0.8 cm, volume 0.2 mL. Nodule characteristics: Composition: Solid/almost completely solid (2). Echogenicity: Hypoechoic (2). Shape: Not taller than wide (0). Margins: Ill-defined (0). Echogenic Foci: None (0). ACR TI-RADS total points: 4. ACR TI-RADS category: 4. 2. Location: Right lower pole. Size: 0.7 x 0.5 x 0.7 cm, volume 0.1 mL. Nodule characteristics: Composition: Solid/almost completely solid (2). Echogenicity: Hypoechoic (2). Shape: Not taller than wide (0). Margins: Ill-defined (0). Echogenic Foci: None (0). ACR TI-RADS total points: 4. ACR TI-RADS category: 4. NODES: No lymphadenopathy is seen in the tissue surrounding the thyroid gland. US/US thyroid IMPRESSION: 1. Subcentimeter nonsuspicious nodules right lobe. 2. TR1 (0 point) and TR2 (2 points). 3. TR4 (4-6 points): FNA if more than or equal to 1.5 cm in maximum dimension, followup ultrasound in 1, 2, 3 and 5 years if 1 to 1.4 cm in maximum dimension. 4. TR5 (more than or equal to 7 points): FNA if more than or equal to 1 cm in maximum dimension, followup ultrasound every year for 5 years if 0.5 to 0.9 cm in maximum dimension. ACR TI-RADS RECOMMENDATION REFERENCE: Ultrasound-guided fine-needle aspiration, followup ultrasound, no further follow up. * TR1 (0 point) and TR 2 (2 points): No FNA or follow up * TR3 (3 points): FNA if more than or equal to 2.5 cm in maximum dimension, followup ultrasound in 1, 3 and 5 years if 1.5 to 2.4 cm in maximum dimension. * TR4 (4-6 points): FNA if more than or equal to 1.5 cm in maximum dimension, followup ultrasound in 1, 2, 3 and 5 years if 1 to 1.4 cm in maximum dimension. * TR5 (more than or equal to 7 points): FNA if more than or equal to 1 cm in maximum dimension, followup ultrasound every year for 5 years if 0.5 to 0.9 cm in maximum dimension. * TR3, TR4 or TR5 nodules that are below the size threshold for follow up receive no follow up.
== END 2022-06-29 14:45 | disposition home or self-care (01) ==
LOC: HO.US 14:44
PROVIDERS: Visit Provider Internal Medicine
DX: E04.1 Nontoxic single thyroid nodule (principal); R59.1 Generalized enlarged lymph nodes
CPT/HCPCS: 76536

== ENCOUNTER 2022-09-29 07:21 | Outpatient (REF) | payer OTHER, SELFPAY ==
--- NOTE | ~2022-09-29 | MM_ITS ---
EXAMINATION: MM SCREENING DIGITAL BREAST TOMOSYNTHESIS, BILATERAL CLINICAL INFORMATION: Screening. Asymptomatic. History follicular lymphoma. The lifetime risk of breast cancer based on the Tyrer-Cuzick Model is 6%. COMPARISON: Mammography: 09/18/2021, 09/12/2020, 08/10/2019 TECHNIQUE: Digital breast tomosynthesis is performed in both the craniocaudal and mediolateral oblique views along with computer-aided detection (CAD). Synthesized 2D images are generated from the tomosynthesis. FINDINGS: There are scattered areas of fibroglandular density (ACR BI-RADS breast composition Category b). There are no significant masses, abnormal calcifications, or other abnormalities. Parenchymal pattern is similar to prior studies. There is no developing density or architectural abnormality. The axilla and skin contours are unremarkable. No significant changes. MM/MM tomosynthesis screening BI IMPRESSION: No mammographic evidence of malignancy. ASSESSMENT: BI-RADS 1: Negative RECOMMENDATION: Routine annual mammography screening. This patient's information was entered into a reminder system with a target due date for their next mammogram.
== END 2022-09-29 07:22 | disposition home or self-care (01) ==
LOC: HO.MAMMO 07:21
PROVIDERS: PCP Internal Medicine; Visit Provider Internal Medicine
DX: Z12.31 Encounter for screening mammogram for malignant neoplasm of breast (principal)
CPT/HCPCS: 77063; 77067

== ENCOUNTER 2022-12-07 09:06 | Outpatient (REF) | payer OTHER, SELFPAY ==
--- NOTE | ~2022-12-07 | PE_ITS ---
EXAMINATION: Fluorine-18 FDG PET/CT Scan CLINICAL INDICATION: Subsequent treatment management. Follicular lymphoma restaging. PROCEDURE: 68 minutes following the intravenous administration of 18.6 mCi of fluorine 18 FDG, images from base of the skull to the mid thigh were obtained using a combined PET/CT scanner with CT scan based attenuation correction. No intravenous contrast was administered. Transverse, coronal, sagittal, and volume reconstruction projections were obtained. The patient's blood glucose as determined by a finger stick, was 87 mg/dl immediately prior to injection. The radiotracer was injected through the right antecubital superficial vein, without any complication. Total CT exam dose-length product 924.99 mGy-cm * These CT images were obtained using dose optimization techniques as appropriate, variously including the following: Automated exposure control * Adjustment of mA and/or kV according to patient size (this includes techniques or standardized protocols for targeted exams where dose is matched to indication/reason for exam; i.e. extremities or head) * Use of iterative reconstruction technique COMPARISON: Baseline PET/CT study done on 06/01/2018 and most recent prior PET CT study done on 06/15/2022. Ultrasound of the soft tissue neck and ultrasound of the thyroid done on 06/21/2022 and 06/29/2022. FINDINGS: HEAD AND NECK: Previously documented mild FDG avid bilateral level 2 cervical lymph nodes (left greater than right) with SUV max of 3.4 () appear stable. No new additional sites of lymphadenopathy. Previously documented mild FDG avidity involving the right lobe of the thyroid gland and to a lesser extent left lobe of the thyroid gland appear unchanged since the prior study dated 06/15/2022. THORAX: No FDG avid mediastinal, hilar, axillary, internal mammary or supraclavicular lymphadenopathy, unchanged. No FDG avid lung or pleural disease. No evidence of any pleural or pericardial effusion. Persistent stable oval-shaped 1 cm maximum dimension avascular non-FDG avid nodule is noted in the retrosternal region (63/267), appear unchanged since the baseline study dated 06/01/2018. ABDOMEN AND PELVIS: No FDG avid liver, splenic or adrenal disease. The gallbladder, biliary tree and pancreas appears unremarkable. Both kidneys including both renal pelvicalyceal system and both ureters and the bladder appear unremarkable. Postsurgical changes are noted within the stomach with mild FDG avidity likely represent inflammatory changes with SUV max of 4.5 (106/267). FDG avid left external iliac lymph node currently measures 1.3 cm at its maximum short axis dimension with SUV max of 5.3 (206/267), previously 1.2 cm with SUV max of 4.5. FDG avid left groin lymph node currently measures 1.1 cm at its maximum short axis dimension with SUV max of 4.0 (214/267), previously measured 1.0 cm with SUV max of 4.5. An additional left groin lymph node measuring 0.7 cm at its maximum short axis dimension with SUV max of 4.1 (233/267) previously measured approximately 0.8 cm at its maximum short axis dimension with SUV max of 2.2. No evidence of any FDG avid retroperitoneal or mesenteric lymphadenopathy, unchanged. MUSCULOSKELETAL: Bilateral symmetric increased FDG avidity is noted within the gluteal musculatures, likely physiologic. Interval development of small focal FDG avidity is noted within the posterior part of the right-sided T7 vertebral body with SUV max of 4.3 (95/267), without any underlying CT correlate, of indeterminate etiology. VASCULAR: No significant calcific atherosclerotic disease of the aorta and its branches, unchanged. Deauville Score: Deauville score of 3 is assigned. SUV max of mediastinal blood pool: 2.2 SUV max of liver: 3.0 PET/PET CT fusion skull to thigh IMPRESSION: 1. Persistent mild FDG avid bilateral cervical level 2 (left greater than right) lymph nodes and left external iliac and left groin lymph nodes showing no significant interval change in terms of size as well as FDG avidity since the most recent prior study dated 06/15/2022. The left external iliac lymph node is most intense with SUV max of 5.3, previously 4.5. Deauville score of 3 is assigned, previously 5. 2. Mild FDG avidity within the stomach is new however likely represent inflammatory changes. 3. Interval development of small focal FDG avidity within the posterior part of the right-sided T7 vertebral body with SUV max of 4.[address] correlate, of indeterminate etiology. Deauville score of X is assigned. Follow-up MRI with and without contrast may be considered for further clarification, if clinically appropriate. Reference: Deauville Score: Score 1: No uptake above the background Score 2: Uptake ? mediastinum Score 3: Uptake > mediastinum but ? liver Score 4: Uptake moderately increased compared to the liver at any site Score 5: Uptake markedly increased compared to the liver at any site or any new lesion Score X: New areas of uptake unlikely to be related to lymphoma
== END 2022-12-07 09:07 | disposition home or self-care (01) ==
LOC: HO.PET 09:06
PROVIDERS: PCP Internal Medicine; Visit Provider Internal Medicine
DX: Z13.89 Encounter for screening for other disorder (principal)

== ENCOUNTER 2022-12-21 15:48 | Outpatient (REF) | payer OTHER, SELFPAY ==
--- NOTE | ~2022-12-21 | MR_ITS ---
EXAMINATION: MR THORACIC SPINE WITHOUT AND WITH CONTRAST CLINICAL INFORMATION: Abnormal T7 on PET scan. COMPARISON: Head CT 12/07/2022. TECHNIQUE: MRI of the thoracic spine was obtained using routine sequences without and with contrast. A total of 10 mL Gadavist was intravenously administered. FINDINGS: The thoracic vertebral bodies maintain normal heights and alignment. The disc heights are preserved. The bone marrow signal appears normal. No definite abnormality is seen at the T7 level with special attention to the right posterior aspect of the T7 vertebral body and posterior elements, as described on the recent PET/CT report. The thoracic cord signal appears normal. No abnormal enhancement is seen. There is no cord compression. A small left paracentral protrusion is seen at T9-T10 and T10-T11. The spinal canal and neural foramina are patent. The extraspinal soft tissues are within normal limits. MR/MR thoracic spine wo/w con IMPRESSION: No definite abnormality is seen at the T7 level with special attention to the right posterior aspect of the vertebral body and posterior elements. No evidence of metastatic disease. No spinal canal or neural foraminal stenosis.
== END 2022-12-21 15:49 | disposition home or self-care (01) ==
LOC: HO.MRI 15:48
PROVIDERS: PCP Internal Medicine; Visit Provider Internal Medicine
DX: C82.90 Follicular lymphoma, unspecified, unspecified site (principal)
CPT/HCPCS: 72157; A9585

== ENCOUNTER 2023-01-23 07:31 | Emergency (ER) | payer OTHER, SELFPAY ==
--- NOTE | ~2023-01-23 | XR_ITS ---
EXAMINATION: XR HAND, LEFT CLINICAL INFORMATION: Swelling and redness COMPARISON: None available. TECHNIQUE: PA, lateral, and oblique views of the left hand. FINDINGS: The bones and soft tissues are normal. No fracture. Alignment is anatomic. Joint spaces are maintained. No erosions or soft tissue calcifications. XR/XR hand LT 2V IMPRESSION: Normal left hand.
[2023-01-23 07:42] VITALS: BP 134/68; PULSE 86; RESP 18; TEMP 36.3; O2SAT 98; BMI 35.3
--- NOTE | 2023-01-23 08:09 | ED_ITS ---
HPI - General Adult General Chief complaint: Extremity Injury, Lower Stated complaint: Fall/injury to left hand Time Seen by Provider: 01/23/23 07:46 History of Present Illness HPI narrative: Patient is a 52-year-old female presented today with having fallen on her left MCP joint of the index long and ring finger. Pain localized to the area. Positive swelling. Denies any head injury. No systemic complaints. No wrist pain. Related Data Home Medications Medication Instructions Recorded Confirmed calcium 500 mg tablet 500 mg PO DAILY 03/25/21 11/17/22 multivitamin 1 tab PO DAILY 03/25/21 11/17/22 Previous Rx's Medication Instructions Recorded ibuprofen 400 mg tablet 400 mg PO Q6H PRN pain #20 tabs 01/23/23 oxycodone 5 mg tablet 5 mg PO Q8H PRN pain #7 tabs 01/23/23 Allergies Allergy/AdvReac Type Severity Reaction Status Date / Time No Known Allergies Allergy Verified 01/23/23 07:42 Review of Systems Review of Systems: No fever no chills no systemic complaints or dizziness or nausea no vomiting Yes all other systems are reviewed and are negative [facility] Past Medical History Medical History Cervical polyp Lymphoma Post-COVID chronic cough Surgical History History of left breast biopsy History of lymph node excision S/P laparoscopic sleeve gastrectomy Social History Social History Household Members: Significant Other and Children Housing: House Are you a primary nurse behavioral health care to a significant other at home: No Do you presently have visiting nurse or other home services: No Alcohol intake: current Alcohol intake frequency: holidays/special occasions only Patient Tobacco Use Status: Never used Tobacco Smoked in Last 30 Days: No Second Hand Smoke Exposure: No Use of substances other than those prescribed or required for medical reasons: No Advance Directives: Yes Advance Directives on File: Yes Advance Directives Date on File: 02/11/22 Patient : No service: No Current occupational status: employed Current occupation: right handed/ nurse Physical Exam ED Vital Signs: Vital Signs - 24 hr 01/23/23 07:42 01/23/23 08:25 Temperature 97.3 F Pulse Rate 86 76 Respiratory Rate 18 18 Blood Pressure 134/68 137/62 Pulse Oximetry 98 96 Oxygen Delivery Method Room Air Room Air BMI result Body Mass Index 35.3 Well-appearing no acute distress No evidence of shortness of breath Examination of left upper extremity showed no anatomical snuffbox tenderness. Good range of motion at the wrist. Pain on movement of the left index finger, long finger, ring finger MCP joint. Minimal swelling noted. Distally sensation intact capillary refill less than 2 seconds. Medications Administered Discontinued Medications Generic Name Dose Route Start Last Admin Trade Name Freq PRN Reason Stop Dose Admin Hydrocodone Bitart/Acetaminophen 1 tab 01/23/23 08:08 01/23/23 08:13 Hydrocodone Bit/Acetam 5/325 Tablet PO 01/23/23 08:09 1 tab ONCE ONE Administration Medical Decision Making Medical Decision Making MDM Narrative: X-ray of the left hand was grossly negative. There is no gross fracture. Rings were removed. I supplied for swelling. We will discharge patient home. In stable condition. Differential Diagnosis Differential Diagnoses: The differential diagnosis associated with the presentation includes Contusion, fracture Independent Interpretation I performed an independent interpretation of an: Plain X-Ray Interpretation: X-ray showed no fracture Radiology Impression Discussion of test interpretation with radiology: I have reviewed the radiologist's reading. Discharge Plan Discharge Clinical Impression: Contusion Patient Disposition: Home, Self-Care Instructions: Hand Sprain (ED) Prescriptions: New ibuprofen 400 mg tablet 400 mg PO Q6H PRN (Reason: pain) Qty: 20 0RF oxycodone 5 mg tablet 5 mg PO Q8H PRN (Reason: pain) Qty: 7 0RF Rx Instructions: Partial Fill upon patient request. No Action multivitamin Tablet 1 tab PO DAILY calcium 500 mg Tablet 500 mg PO DAILY Referrals: Sivan Sr MD [Primary Care Provider] - Stand Alone Forms: Work/School Release
[2023-01-23] MEDS: HYDROcodone Bit/Acetam 5/325 TABLET 1 TAB PO (08:13)
[2023-01-23 08:25] VITALS: BP 137/62; PULSE 76; RESP 18; O2SAT 96
--- NOTE | 2023-01-23 08:30 | PC.NURSE ---
this rn removed yellow band with clear stones from left 4th digit with ring cutter and patient's permission at arrival to bed.
[2023-01-23 09:22] VITALS: BP 128/87; PULSE 71; RESP 18; O2SAT 96
== END 2023-01-23 09:24 | disposition home or self-care (01) ==
PROVIDERS: Emergency Provider Emergency Medicine Emergency Medical Services; PCP Internal Medicine
DX: S60.222A Contusion of left hand, initial encounter (principal); W01.0XXA Fall on same level from slipping, tripping and stumbling without subsequent striking against object, initial encounter; Y93.89 Activity, other specified; Y92.9 Unspecified place or not applicable; Y99.9 Unspecified external cause status
CPT/HCPCS: 73120; 99283; 99284

== ENCOUNTER 2023-03-22 08:57 | Outpatient (AMB) | payer OTHER, SELFPAY ==
--- NOTE | 2023-03-22 09:07 | A.OFFVIS_ITS ---
Intake Vital Signs 03/22/23 09:09 Height 5 ft 6 in Weight 220 lb BMI 35.5 BP 110/59 L Blood Pressure Location Rt brachial Position Sitting Pulse 64 Intake Visit Reasons: Hernia Intake Note: Patient here for incisional hernia. Noticed 6m. C/o painful when bending, cough. 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 She has complaints of upper abdominal discomfort and fullness in the in the region of her epigastric port site. Patient is otherwise tolerating a diet. Having bowel habits. She has no other abdominal issues or complaints. [facility] Medical History Post-COVID chronic cough Cervical polyp Lymphoma Surgical History S/P laparoscopic sleeve gastrectomy History of lymph node excision History of left breast biopsy Social History Household Members: Significant Other and Children Housing: House Are you a primary health care social worker to a significant other at home: No Do you presently have visiting nurse or other home services: No Alcohol intake: current Alcohol intake frequency: holidays/special occasions only Patient Tobacco Use Status: Never used Tobacco Second Hand Smoke Exposure: No Advance Directives Date on File: 02/11/22 service: No Current occupational status: employed Current occupation: right handed/ nurse Physical Exam Vital Signs: Last Vital Signs Pulse 64 03/22/23 09:09 BP 110/59 L 03/22/23 09:09 BMI result Body Mass Index 35.5 GI Other: Patient was examined standing with Valsalva. Abdomen moderately corpulent. Upper midline port site demonstrating a fullness suggestive of either scar tissue or perhaps underlying hernia. Assessment & Plan Assessment & Plan (1) Incisional hernia: Code(s): K43.2 - Incisional hernia without obstruction or gangrene Plan Current plan is to obtain CT scan the abdomen to rule out incisional/port site hernia. Further events shins studies will be directed by the results of the above-mentioned scan. All questions were answered. Arrangements were made for this. Patient will see me after the CT scan. Coding Level of Care Code New Pt Level 4 (66909) Diagnoses Incisional hernia K43.2
[2023-03-22 09:09] VITALS: BP 110/59; PULSE 64; BMI 35.5
== END 2023-03-22 09:35 | disposition home or self-care (01) ==
PROVIDERS: PCP Internal Medicine; Visit Provider Surgery
DX: K43.2 Incisional hernia without obstruction or gangrene (principal)
CPT/HCPCS: 99204

== ENCOUNTER → 2023-03-22 08:57 | Outpatient (BNVA) | payer OTHER, SELFPAY | PROVIDERS: PCP Internal Medicine; Visit Provider Surgery ==

== ENCOUNTER 2023-05-09 13:36 | Outpatient (REF) | payer OTHER, SELFPAY ==
--- NOTE | ~2023-05-09 | CT_ITS ---
EXAMINATION: CT ABDOMEN AND PELVIS WITH CONTRAST CLINICAL INFORMATION: Gastric bypass surgery with incisional hernia, evaluate for hernia at port site COMPARISON: None available. TECHNIQUE: Multidetector volumetric images were obtained from the superior aspect of the liver through the pubic symphysis following administration 85 mL of Omnipaque 350 intravenous contrast. Sagittal and coronal reformatted images were obtained on the technologist's workstation. Oral contrast: No This CT examination was performed using dose optimization techniques as appropriate, variously including the following: *Automated exposure control *Adjustment of mA and/or kV according to patient size (this includes techniques or standardized protocols for targeted exams where dose is matched to indication/reason for exam; i.e. extremities or head) *Use of iterative reconstruction technique DLP: 671.0 mGy-cm FINDINGS: LUNG BASES: The visualized lung bases are unremarkable. LIVER, GALLBLADDER, AND BILIARY TREE: The liver is normal in size, shape, and attenuation. Geographic low-attenuation adjacent to the falciform ligament is consistent with focal fatty infiltration. No biliary ductal dilatation is present. The gallbladder is unremarkable with no evidence of radiopaque gallstones, gallbladder wall thickening, or obvious pericholecystic inflammatory changes. PANCREAS: Unremarkable. SPLEEN: Unremarkable. ADRENAL GLANDS: Unremarkable. KIDNEYS AND URETERS: The kidneys are normal in size, shape, and attenuation. No hydronephrosis, hydroureter, or calculi seen. No perinephric stranding. BLADDER: Unremarkable. GASTROINTESTINAL TRACT: Changes of gastric bypass surgery are present. The small and large bowel are unremarkable. The appendix is unremarkable. ABDOMINAL WALL: No significant hernia is appreciated. LYMPH NODES: Normal. VASCULAR: Unremarkable. PELVIC VISCERA: Unremarkable. OSSEOUS STRUCTURES: Unremarkable. CT/CT abdomen pelvis w IV con IMPRESSION: 1. Changes of gastric bypass surgery but no abdominal wall hernia is detected. 2. No acute or suspicious findings in the abdomen or pelvis. Fleischner guidelines were followed.
[2023-05-09] MEDS: Barium Sulfate Oral (Vanilla) 450 ML ORAL.SUSP 900 ML PO (16:29)
[2023-05-09] MEDS: iohexoL 350 MG/ML 100 ML INFUS..BTL 85 ML IV (16:31)
[2023-05-10 08:05] LABS: Creatinine POC 0.7 mg/dL (0.5-1.4); GFR POC > 60
== END 2023-05-09 13:37 | disposition home or self-care (01) ==
LOC: HO.CT 13:36
PROVIDERS: PCP Internal Medicine; Visit Provider Surgery
DX: K43.2 Incisional hernia without obstruction or gangrene (principal)
CPT/HCPCS: 74177; 82565; Q9967

== ENCOUNTER 2023-10-05 07:22 | Outpatient (REF) | payer OTHER, SELFPAY | END 2023-10-05 07:23 | disposition home or self-care (01) | LOC: HO.MAMMO 07:22 | PROVIDERS: PCP Internal Medicine; Visit Provider Internal Medicine | DX: Z12.31 Encounter for screening mammogram for malignant neoplasm of breast (principal) | CPT/HCPCS: 77063; 77067 ==

== ENCOUNTER → 2023-10-05 07:45 | Outpatient (BNV) | payer OTHER, SELFPAY | PROVIDERS: PCP Internal Medicine; Visit Provider Radiology Diagnostic Radiology | DX: Z12.31 Encounter for screening mammogram for malignant neoplasm of breast (principal) | CPT/HCPCS: 77063; 77067 ==

== ENCOUNTER 2023-10-09 08:13 | Emergency (ER) | payer OTHER, SELFPAY ==
--- NOTE | 2023-10-09 | ECG_ITS ---
Test Reason : DIFF BREATHING Blood Pressure : / mmHG Vent. Rate : 085 BPM Atrial Rate : 085 BPM P-R Int : 122 ms QRS Dur : 072 ms QT Int : 352 ms P-R-T Axes : 063 036 019 degrees QTc Int : 418 ms Normal sinus rhythm Normal ECG No previous ECGs available Referred By: Generic ED Physician Electronically Signed By:DELILAH MYERS MD
--- NOTE | ~2023-10-09 | XR_ITS ---
EXAMINATION: XR CHEST CLINICAL INFORMATION: Cough, chest pain. COMPARISON: Chest radiograph 07/18/2021. TECHNIQUE: 2 views of the chest were obtained. FINDINGS: Normal appearance of the cardiomediastinal silhouette. No focal consolidation, pleural effusion or pneumothorax. No pulmonary edema. Multiple surgical clips projecting over the left upper quadrant. No acute bone findings. XR/XR chest 2V IMPRESSION: No acute cardiopulmonary findings.
[2023-10-09 08:20] VITALS: BP 146/72; PULSE 103; RESP 20; TEMP 36.6; O2SAT 99; BMI 33.9
--- NOTE | 2023-10-09 08:29 | ED.GENADULT ---
HPI - General Adult General Chief complaint: Upper Respiratory Symptoms Stated complaint: Pneumonia? Time Seen by Provider: 10/09/23 08:28 Source: patient Mode of arrival: ambulatory Limitations: no limitations History of Present Illness HPI narrative: Patient is a 52-year-old female with history of lymphoma presenting to the emergency department with complaint of cough productive of yellow/green sputum and fever with Tmax of 102.4 for the past 2 days. Reports history of frequent infections with bronchitis/pneumonia. Denies any chest pain or palpitations. Denies abdominal pain, nausea, vomiting, diarrhea. Has been using Tylenol and ibuprofen as well NyQuil for symptoms at home. Denies known sick contacts. MD complaint: Cough, fever Onset (ago): day(s) Associated symptoms: cough and fever/chills Treatments prior to arrival: NSAID and other Related Data Home Medications ?Medication ?Instructions ?Recorded ?Confirmed calcium 500 mg tablet 500 mg PO DAILY 03/25/21 02/16/23 multivitamin 1 tab PO DAILY 03/25/21 02/16/23 Previous Rx's ?Medication ?Instructions ?Recorded ibuprofen 400 mg tablet 400 mg PO Q6H PRN pain #20 tabs 01/23/23 albuterol sulfate 90 mcg/actuation 2 puff inhalation Q4-6H PRN 10/09/23 aerosol inhaler shortness of breath or wheezing #6.7 grams azithromycin 250 mg tablet See Rx Instructions PO .COMPLEX #6 10/09/23 tabs prednisone 20 mg tablet 40 mg (2 x 20 mg) PO DAILY #10 tabs 10/09/23 Allergies Allergy/AdvReac Type Severity Reaction Status Date / Time No Known Allergies Allergy Verified 10/09/23 08:23 Review of Systems Review of Systems: As per HPI. Yes all other systems are reviewed and are negative Constitutional: Constitutional: Reports as per HPI [facility] Past Medical History Medical History Post-COVID chronic cough Cervical polyp Lymphoma Surgical History S/P laparoscopic sleeve gastrectomy History of lymph node excision History of left breast biopsy Social History Social History Household Members: Significant Other and Children Housing: House Are you a primary childcare center administrator to a significant other at home: No Do you presently have visiting nurse or other home services: No Alcohol intake: current Alcohol intake frequency: holidays/special occasions only Patient Tobacco Use Status: Never used Tobacco Smoked in Last 30 Days: No Second Hand Smoke Exposure: No Use of substances other than those prescribed or required for medical reasons: No Advance Directives: Yes Advance Directives Information Provided: Yes Advance Directives on File: Yes Advance Directives Date on File: 02/11/22 service: No Current occupational status: employed Current occupation: right handed/ nurse Physical Exam ED Vital Signs: Vital Signs - 24 hr 10/09/23 08:20 10/09/23 08:49 10/09/23 09:11 Temperature 98 F Pulse Rate 103 H 84 Respiratory Rate 20 17 Blood Pressure 146/72 H 147/90 H Pulse Oximetry 99 96 98 Oxygen Delivery Method Room Air Room Air Room Air BMI result Body Mass Index 33.9 Vital signs have been reviewed and appear to be correct. Blood pressure elevated. Heart rate slightly tachycardic. Respiratory rate normal. Temperature normal. Oxygen saturation normal. Const General: cooperative, healthy appearing and no acute distress Orientation/consciousness: oriented to person, oriented to place, oriented to time and patient oriented x3 Limitations: no limitations HENMT Head: Yes normocephalic and Yes atraumatic Ears: external ears normal General nose exam: Normal external nose present Face and sinus: Yes face symmetric Mouth: oropharynx normal and moist mucous membranes Throat: Yes uvula midline Eyes Pupils: Equal, round and reactive pupils present Neck Neck: Yes normal visual inspection and Yes supple Resp Effort & Inspection: normal respiratory effort and able to speak in complete sentences Auscultation: clear to auscultation bilaterally, no crackles, no wheezes and diminished lung sounds diffuse Cardio Rate: regular rate Rhythm: regular rhythm Heart sounds: S1 normal heart sound present and S2 normal heart sound present GI Palpation (GI): Soft to palpation and nontender Auscultation: normoactive bowel sounds General: Yes no CVA tenderness Back/Spine/Pelvis Back: no CVA tenderness Skin General skin exam: elasticity normal and turgor normal Neuro General: oriented to person, oriented to place, oriented to time, patient oriented x3, moves all extremities, no focal motor deficits and CN's II-XI intact bilaterally Cranial nerves: Yes Equal, round and reactive pupils present Cognition (Neuro): normal cognition Extrem General: Yes full ROM, Yes no pedal edema and Yes no calf tenderness Psych Mental Status: mental status grossly normal Affect: normal affect Thought process: Normal thought process present Medical Decision Making Medical Decision Making [facility] Narrative: Patient is a 52-year-old female with history of lymphoma presenting to the emergency department with complaint of cough productive of yellow/green sputum and fever with Tmax of 102.4 for the past 2 days. On exam patient is awake, A+Ox3, slightly tachycardic, VS otherwise WNL, afebrile, normal neurological exam without focal deficits, physical exam findings as above. Given reported symptoms and physical exam findings, initial differential includes viral illness, COVID, flu, RSV, bronchitis, pneumonia. EKG shows normal sinus rhythm. Labs notable for no leukocytosis or leukopenia, no anemia. Delay in results of CMP due to chemistries needing to be sent out by lab. Discussed this with patient and feel comfortable with discharge home prior to results of CMP, patient is agreeable to this and will be contacted with any abnormal results. X-ray notable for no evidence of pneumonia. My interpretation is in agreement with the radiologist's interpretation. Given history will treat with azithromycin and prednisone, albuterol. Instructed patient to follow-up with primary care provider. Return precautions discussed at bedside. Patient verbalized understanding of and agreement with plan. Differential Diagnosis Differential Diagnoses: The differential diagnosis associated with the presentation includes As per MDM. Lab Data [facility] Lab Attestation statement: I reviewed the patient's lab results. As per [facility]. 10/09/23 09:21 10/09/23 09:21 Labs: Lab Results 10/09/23 10/09/23 Range/Units 09:14 09:21 WBC 5.0 (4.8-10.8) X10*3/uL RBC 4.25 (4.20-5.50) X10*6/uL Hgb 12.4 (12.0-16.0) g/dl Hct 37.3 (37.0-47.0) % MCV 87.8 (80.0-98.0) fL MCH 29.2 (27.0-33.0) pg MCHC 33.2 (31.0-35.0) g/dl RDW 13.2 (11.0-16.0) % Plt Count 193 (160-400) X10*3/uL MPV 9.8 (9.4-12.3) fL Immature Gran % (Auto) 0.4 (0.0-0.4) % Neut % (Auto) 68.5 (45-73) % Lymph % (Auto) 19.6 L (20-40) % [place] % (Auto) 9.3 (2-11) % Eos % (Auto) 1.8 (0-4) % Baso % (Auto) 0.4 (0-2) % Lymph # (Auto) 1.0 L (1.2-4.9) X10*3/uL [place] # (Auto) 0.5 (0.1-1.2) X10*3/uL Eos # (Auto) 0.1 (0.0-0.4) X10*3/uL Baso # (Auto) 0.0 (0.0-0.2) X10*3/uL Abs Immat Gran (auto) 0.02 (0.00-0.03) X10*3/uL Absolute Neuts (auto) 3.4 (2.0-8.3) x10*3/uL Absolute Nucleated RBC 0.000 (0.0-0.012) X10*3/uL Nucleated RBC % (auto) 0.0 (0.0-0.2) /100WBC Influenza Type A (PCR) NEGATIVE (Negative) Influenza Type B (PCR) NEGATIVE (Negative) RSV RNA Qual (PCR) NEGATIVE (Negative) SARS-CoV-2 RNA (RT-PCR) NEGATIVE (Negative) Independent Interpretation I performed an independent interpretation of an: EKG (normal sinus rhythm, rate 85bpm, normal [place] interval and QTc) and Plain X-Ray Interpretation: No evidence of pneumonia on chest x-ray Radiology Impression Discussion of test interpretation with radiology: I have reviewed the radiologist's reading. Radiologist Impression: XR/XR chest 2V IMPRESSION: No acute cardiopulmonary findings. External Record Review External record reviewed: Inpatient record, Office record and Outpatient record Prescription Management I considered prescription management with: Antibiotic and Other Discharge Plan Discharge Clinical Impression: Bronchitis Patient Disposition: Home, Self-Care Instructions: Acute Bronchitis (ED) Additional Instructions: You were evaluated in the emergency department today for cough and fever. You are being treated for bronchitis with an antibiotic, please complete the full course as prescribed. You are also being prescribed a short course of steroids to decrease inflammation. You are being prescribed an inhaler which you can use every 4-6 hours as needed for shortness of breath. Please follow-up with your primary care provider this week. Return to the emergency department if you develop worsening shortness of breath, difficulty breathing, chest pain, fever not improved with Tylenol or ibuprofen, or any other concerning symptoms. Prescriptions: New azithromycin 250 mg tablet See Rx Instructions .ROUTE .COMPLEX Qty: 6 0RF Rx Instructions: For 250 mg dose pack: take 500 mg today (day 1), then 250 mg for 4 days (days 2-5) prednisone 20 mg tablet 40 mg PO DAILY Qty: 10 0RF albuterol sulfate 90 mcg/actuation HFA aerosol inhaler 2 puff inhalation Q4-6H PRN (Reason: shortness of breath or wheezing) Qty: 6.7 0RF No Action multivitamin Tablet 1 tab PO DAILY calcium 500 mg Tablet 500 mg PO DAILY ibuprofen 400 mg tablet 400 mg PO Q6H PRN (Reason: pain) Qty: 20 0RF Stand Alone Forms: Work/School Release Print Language: Macedonian
[2023-10-09 08:49] VITALS: BP 147/90; PULSE 84; RESP 17; O2SAT 96
[2023-10-09 09:11] VITALS: O2SAT 98
--- NOTE | 2023-10-09 09:20 | PC.NURSE ---
pt is alert and oriented, skin appropriate for ethnicity, respirations even and unlabored, ls diminished, pt reports not feeling well cough-with productive yellow phlem, fevers at home/chills/congestion/back pain-which is chronic for the pt-but mostly the upper back but now having lower back pain as well. vs stable and ns on the monitor
[2023-10-09 09:23] LABS: MANUAL DIFF FLAG NO
[2023-10-09 09:31] LABS: Basophils Percent Auto 0.4 % (0-2); Eosinophils Absolute Auto 0.1 X10*3/uL (0.0-0.4); Eosinophils Percent Auto 1.8 % (0-4); Hematocrit 37.3 % (37.0-47.0); Hemoglobin 12.4 g/dl (12.0-16.0); Imm Gran Abs Auto 0.02 X10*3/uL (0.00-0.03); Imm Gran Pct Auto 0.4 % (0.0-0.4); Lymphocytes Percent Auto 19.6 % (20-40); Mean Corpuscular HGB Conc 33.2 g/dl (31.0-35.0); Mean Corpuscular Hemoglobin 29.2 pg (27.0-33.0); Mean Corpuscular Volume 87.8 fL (80.0-98.0); Mean Platelet Volume 9.8 fL (9.4-12.3); Monocytes Absolute Auto 0.5 X10*3/uL (0.1-1.2); Monocytes Percent Auto 9.3 % (2-11); Neutrophils Absolute Auto 3.4 x10*3/uL (2.0-8.3); Neutrophils Percent Auto 68.5 % (45-73); Platelet Count 193 X10*3/uL (160-400); Red Blood Count 4.25 X10*6/uL (4.20-5.50); Red Cell Distribution Width 13.2 % (11.0-16.0)
[2023-10-09 10:00] LABS: Influenza A PCR NEGATIVE (Negative); Influenza B PCR NEGATIVE (Negative); Resp Syncy Virus RNA Qual PCR NEGATIVE (Negative); SARS COV2 PCR INHOUSE NEGATIVE (Negative)
[2023-10-09 11:08] VITALS: BP 127/84; PULSE 84; RESP 18; TEMP 36.7; O2SAT 98
[2023-10-09 12:05] LABS: Alanine Aminotransferase 25 U/L (0-31); Anion Gap 13 (12-20); Aspartate Amino Transferase 18 U/L (5-31); Bilirubin Total 0.2 mg/dL (0.0-1.0); Blood Urea Nitrogen 14 mg/dL (9-16); Calcium 8.8 mg/dL (8.4-10.2); Carbon Dioxide 20 mmol/L (22-29); Chloride 105 mmol/L (96-108); Creatinine Clr Calc Pharmacy 106.8; Estimated Glomerular Filt Rate > 60; Glucose Random 104 mg/dL (60-115)
[2023-10-09 12:06] LABS: Albumin Level 3.8 g/dL (3.5-5.0); Alkaline Phosphatase 75 U/L (39-117); Sodium 138 mmol/L (135-145)
== END 2023-10-09 11:10 | disposition home or self-care (01) ==
PROVIDERS: Emergency Provider Student in an Organized Health Care Education/Training Program; PCP Internal Medicine
DX: J40 Bronchitis, not specified as acute or chronic (principal); R06.02 Shortness of breath; Z11.52 Encounter for screening for COVID-19; Z20.822 Contact with and (suspected) exposure to COVID-19; Z79.899 Other long term (current) drug therapy
CPT/HCPCS: 0241U; 71046; 80053; 85025; 93005; 99283; 99285

== ENCOUNTER → 2023-10-09 08:39 | Outpatient (BNV) | payer OTHER, SELFPAY | PROVIDERS: Emergency Provider Student in an Organized Health Care Education/Training Program; PCP Internal Medicine; Visit Provider Internal Medicine Cardiovascular Disease | DX: R06.00 Dyspnea, unspecified (principal) | CPT/HCPCS: 93010 ==

== ENCOUNTER 2024-10-10 07:35 | Outpatient (REF) | payer OTHER, SELFPAY | END 2024-10-10 07:36 | disposition home or self-care (01) | LOC: HO.MAMMO 07:35 | PROVIDERS: PCP Internal Medicine; Visit Provider Internal Medicine | DX: Z12.31 Encounter for screening mammogram for malignant neoplasm of breast (principal) | CPT/HCPCS: 77063; 77067 ==

== ENCOUNTER → 2024-10-10 07:45 | Outpatient (BNV) | payer OTHER, SELFPAY | PROVIDERS: PCP Internal Medicine; Visit Provider Internal Medicine | DX: Z12.31 Encounter for screening mammogram for malignant neoplasm of breast (principal) | CPT/HCPCS: 77063; 77067 ==